=== PATIENT | male | born 1965 | race Caucasian/White ===

== ENCOUNTER → 2024-04-30 | Outpatient (CLI) | payer MEDICARE | LOC: M PLARAD 10:03 | PROVIDERS: ATTEND Family Medicine Addiction Medicine | DX: R26.89 Other abnormalities of gait and mobility (principal) ==

== ENCOUNTER → 2024-05-01 | Outpatient (REF) | payer MEDICARE ==
[2024-05-01 14:38] LABS: ALBUMIN 3.7 G/DL (3.2-5.2); ALKALINE PHOSPHATASE 111 U/L (46-116); ALT/SGPT 48 U/L (7.0-40); AST/SGOT 17 U/L (<34); BILIRUBIN,TOTAL 0.7 MG/DL (0.3-1.2); BLOOD UREA NITROGEN 20 MG/DL (9-23); CALCIUM LEVEL 9.6 MG/DL (8.3-10.6); CARBON DIOXIDE LEVEL 27 MMOL/L (20-31); CHLORIDE LEVEL 107 MMOL/L (98-107); CHOLESTEROL LEVEL 143 MG/DL (<200); CHOLESTEROL RISK RATIO 4.12 (<5); CREATININE FOR GFR 1.03 MG/DL (0.70-1.30); GLOMERULAR FILTRATION RATE > 60.0 (>49); GLUCOSE, FASTING 100 MG/DL (74-106); HDL CHOLESTEROL 34.7 MG/DL (>40); LDL CHOLESTEROL 87.7 MG/DL (<100); NON-HDL-C 108.3 MG/DL; POTASSIUM SERUM 4.6 MMOL/L (3.5-5.1); SODIUM LEVEL 139 MMOL/L (136-145); TRIGLYCERIDES LEVEL 103 MG/DL (<150)
== END ==
LOC: M LAB REF 12:57
PROVIDERS: ATTEND Family Medicine Addiction Medicine
DX: I10 Essential (primary) hypertension (principal)

== ENCOUNTER 2024-07-05 17:11 | Inpatient (IN) | payer MEDICARE ==
[~2024-07-05] VITALS: Ht 182.9 cm; Wt 100.3 kg
[2024-07-05] MEDS: NS 1,000 ML IV SCH (00:42)
[2024-07-05 17:59] LABS: VENOUS BASE EXCESS -12.6 (-2.0-2.0); VENOUS HCO3 10.1 MMOL/L (23.0-27.0); VENOUS PARTIAL PRESSURE CO2 18.1 mmHg (38.0-50.0); VENOUS PARTIAL PRESSURE O2 86.3 mmHg (30.0-50.0); VENOUS PH 7.363 UNITS (7.330-7.430); VENOUS STANDARD HCO3 14.7 MMOL/L; VENOUS TOTAL CO2 10.6 MMOL/L (24.0-28.0)
[2024-07-05 18:03] LABS: BASO % 0.2 % (0.0-1.0); EOS % 0.3 % (0.0-3.0); HEMATOCRIT 36.1 % (42.0-52.0); HEMOGLOBIN 13.2 g/dl (13.5-17.5); LYMPH % 6.3 % (24.0-44.0); MEAN CORPUSCULAR HEMOGLOBIN 31.8 pg (27.0-33.0); MONO # 1.2 10^3/uL (0.0-0.8); MONO % 7.7 % (2.0-8.0); NEUTROPHILS # 12.7 10^3/uL (1.5-8.5); NEUTROPHILS % 84.6 % (36.0-66.0); PLATELET COUNT, AUTOMATED 266 10^3/uL (150-450); RED BLOOD COUNT 4.15 10^6/uL (4.30-6.10)
[2024-07-05 18:06] LABS: MEAN CORPUSCULAR HGB CONC 36.6 g/dl (32.0-36.5)
[2024-07-05] MEDS: NS 1,000 ML IV ONE ×3 (18:25)
[2024-07-05] MEDS: LIDOCAINE 2% 5ML JELLY UROJET TOP ONE (18:50)
[2024-07-05 18:57] LABS: ETHYL ALCOHOL (ETHANOL) < 0.003 % (0.000-0.010)
[2024-07-05 18:58] LABS: SALICYLATE LEVEL < 3.0 MG/DL (<30)
[2024-07-05 18:58] LABS: INR 1.29; PROTHROMBIN TIME 15.7 SECONDS (12.5-14.5)
[2024-07-05 19:06] LABS: PROCALCITONIN 25.41 ng/ml
[2024-07-05] MEDS: VANCOMYCIN HCL 1,000 MG, VIAL MATE ADAPTER 1 EACH in D5W 250 ML IV ONE (19:26)
[2024-07-05 19:35] LABS: ALBUMIN 2.3 G/DL (3.2-5.2); ALKALINE PHOSPHATASE 118 U/L (46-116); ALT/SGPT 181 U/L (7.0-40); AST/SGOT 134 U/L (<34); BILIRUBIN,DIRECT 0.4 MG/DL (<0.4); BILIRUBIN,TOTAL 0.6 MG/DL (0.3-1.2); BLOOD UREA NITROGEN 186 MG/DL (9-23); CALCIUM LEVEL 7.3 MG/DL (8.3-10.6); CARBON DIOXIDE LEVEL < 10.0 MMOL/L (20-31); CHLORIDE LEVEL 98 MMOL/L (98-107); CK-MB VALUE MASS 5.5 NG/ML (<3.6); CREATININE FOR GFR 9.83 MG/DL (0.70-1.30); GLOMERULAR FILTRATION RATE 5.8 (>49); GLUCOSE, FASTING 109 MG/DL (74-106); POTASSIUM SERUM 4.4 MMOL/L (3.5-5.1); SODIUM LEVEL 130 MMOL/L (136-145); TOTAL PROTEIN 5.8 G/DL (5.7-8.2)
[2024-07-05 19:47] LABS: CPK CREATINE PHOSPHOKINASE 2108 U/L (46-171); MB/CK RELATIVE INDEX 0.26 (< OR =4)
[2024-07-05] MEDS: CEFEPIME HCL 1 GM in D5W MINI-BAG PLUS 50 ML IV ONE (20:29)
[2024-07-05] MEDS ORDERED: HOME MED LIST COMPLETE! XX SCH (20:30)
[2024-07-05] MEDS ORDERED: LISI20TA33 PO (20:30)
[2024-07-05] MEDS ORDERED: AMLO1TAB25 PO (20:30)
[2024-07-05 20:54] LABS: CK-MB VALUE MASS 4.6 NG/ML (<3.6)
[2024-07-05 21:07] LABS: MB/CK RELATIVE INDEX 0.3 (< OR =4)
[2024-07-05] MEDS ORDERED: ACETAMINOPHEN 650MG SUPP PR PRN (21:45)
[2024-07-05] MEDS ORDERED: BISACODYL 10MG SUPP PR PRN (21:45)
[2024-07-05] MEDS ORDERED: MORPHINE 2 MG/ML 1ML VIAL IV PRN (21:45)
[2024-07-05] MEDS ORDERED: HYOSCYAMINE SULFATE 0.125 MG SUBL TABLET PO PRN (21:45)
[2024-07-05] MEDS ORDERED: ACETAMINOPHEN TAB 650MG DOSE (2X325MG) PO PRN (21:45)
[2024-07-05] MEDS ORDERED: ONDANSETRON 4MG ORAL DISINTEGRATING TAB PO PRN (21:45)
[2024-07-05] MEDS ORDERED: FLEET ENEMA PR PRN (21:45)
[2024-07-05] MEDS ORDERED: SCOPOLAMINE 1MG TRANSDERMAL PATCH TOP PRN (21:45)
[2024-07-05] MEDS ORDERED: LORazepam 2 MG/ML 1ML VIAL IV PRN (21:45)
[2024-07-05] MEDS ORDERED: ONDANSETRON 4MG 2ML VIAL IV PRN (21:45)
[2024-07-05] MEDS: LORazepam 1 MG TAB PO PRN (22:59)
[2024-07-05] MEDS: MORPHINE 10MG/0.5ML ORAL CONCENTRATE SOLUTION U/D SL PRN (23:00)
[2024-07-05] MEDS: NS 500 ML IV ONE (23:40)
[2024-07-06] VITALS (21 sets, daily range): BP systolic 80–106; BP diastolic 50–61; TEMP 96.9–98.7; O2SAT 94–100
[2024-07-06] MEDS ORDERED: VANCOMYCIN HCL 1,000 MG, VIAL MATE ADAPTER 1 EACH in NS 250 ML IV SCH
[2024-07-06] MEDS ORDERED: ALBUTEROL SULFATE 2.5MG/0.5ML INH NEB SOLN NEB PRN (00:05)
[2024-07-06] MEDS: VANCOMYCIN HCL 1,000 MG, VIAL MATE ADAPTER 1 EACH in D5W 250 ML IV ONE (00:42)
[2024-07-06 00:50] LABS: MAGNESIUM LEVEL 2.7 MG/DL (1.8-2.4); PHOSPHORUS LEVEL 10.1 MG/DL (2.4-5.1)
[2024-07-06] MEDS ORDERED: VANCOMYCIN INTERMITTENT/PULSE DOSING BY CLINICAL PHARMACIST PER DOSING PROTOCOL XX SCH ×2 (01:10→16:40)
[2024-07-06 01:22] LABS: CHLORIDE,RANDOM URINE 55 MMOL/L; SODIUM,RANDOM URINE 70 MMOL/L
[2024-07-06 01:25] LABS: OSMOLALITY URINE 345 MOSM/KG (50-1400)
[2024-07-06 01:27] LABS: TOTAL PROTEIN,RANDOM URINE 106.2 MG/DL (0.0-14.0)
[2024-07-06 01:28] LABS: AMPHETAMINES LEVEL URINE NEGATIVE (NEGATIVE)
[2024-07-06 01:29] LABS: BARBITURATES URINE NEGATIVE (NEGATIVE); BENZODIAZEPINES URINE NEGATIVE (NEGATIVE); COCAINE METABOLITE URINE NEGATIVE (NEGATIVE); METHADONE URINE NEGATIVE (NEGATIVE); OPIATES URINE NEGATIVE (NEGATIVE)
[2024-07-06 01:30] LABS: CANNABINOIDS URINE NEGATIVE (NEGATIVE); PHENCYCLIDINE URINE NEGATIVE (NEGATIVE)
[2024-07-06 01:31] LABS: CREATININE,RANDOM URINE 83.7 MG/DL
[2024-07-06] MEDS: IPRATROPIUM 0.5MG/ALBUTEROL 2.5MG INH SOL UD 3ML (DUONEB) NEB SCH (01:49)
[2024-07-06 03:35] LABS: VENOUS HCO3 12.4 MMOL/L (23.0-27.0); VENOUS O2 SATURATION 84.7 % (60.0-80.0); VENOUS PARTIAL PRESSURE CO2 27.8 mmHg (38.0-50.0); VENOUS PARTIAL PRESSURE O2 58.8 mmHg (30.0-50.0); VENOUS PH 7.267 UNITS (7.330-7.430); VENOUS STANDARD HCO3 14.1 MMOL/L; VENOUS TOTAL CO2 13.2 MMOL/L (24.0-28.0)
[2024-07-06 03:54] LABS: HEMATOCRIT 32.1 % (42.0-52.0); HEMOGLOBIN 11.4 g/dl (13.5-17.5); MEAN CORPUSCULAR HEMOGLOBIN 31.5 pg (27.0-33.0); MEAN CORPUSCULAR HGB CONC 35.5 g/dl (32.0-36.5); MEAN CORPUSCULAR VOLUME 88.7 fl (80.0-96.0); PLATELET COUNT, AUTOMATED 223 10^3/uL (150-450); RED BLOOD COUNT 3.62 10^6/uL (4.30-6.10); WHITE BLOOD COUNT 11.7 10^3/uL (4.0-10.0)
[2024-07-06 04:12] LABS: PROCALCITONIN 14.55 ng/ml
[2024-07-06] MEDS: NS 500 ML IV ONE (04:20)
[2024-07-06 04:33] LABS: ALBUMIN 1.8 G/DL (3.2-5.2); BILIRUBIN,TOTAL 0.5 MG/DL (0.3-1.2); CALCIUM LEVEL 6.4 MG/DL (8.3-10.6); CREATININE FOR GFR 7.46 MG/DL (0.70-1.30); MAGNESIUM LEVEL 2.3 MG/DL (1.8-2.4); POTASSIUM SERUM 4.1 MMOL/L (3.5-5.1); TOTAL PROTEIN 4.9 G/DL (5.7-8.2)
[2024-07-06 04:34] LABS: ABG BASE EXCESS -12.8 (-2.0-2.0); ABG HCO3 10.6 MMOL/L (22.0-26.0); ABG O2 SATURATION 98.4 % (95.0-99.0); ABG PARTIAL PRESSURE O2 171.7 mmHg (75.0-100.0); ABG STANDARD HCO3 14.5 MMOL/L. (22.0-26.0); ABG TOTAL CO2 11.2 MMOL/L (23.0-31.0); ABG pH (ARTERIAL) 7.355 UNITS (7.350-7.450)
[2024-07-06 04:41] LABS: ABG PARTIAL PRESSURE CO2 19.5 mmHg (35.0-45.0)
[2024-07-06] MEDS: SODIUM BICARBONATE 150 MEQ in D5W 1,000 ML IV SCH (04:57)
[2024-07-06] MEDS: HYDROCORTISONE 100MG/2ML VIAL IV ONE (05:07)
[2024-07-06 06:13] LABS: VANCOMYCIN RANDOM 26.9 UG/ML
[2024-07-06 06:14] LABS: PHOSPHORUS LEVEL 7.5 MG/DL (2.4-5.1)
[2024-07-06 06:28] LABS: VENOUS BASE EXCESS -11.5 (-2.0-2.0); VENOUS O2 SATURATION 98.6 % (60.0-80.0); VENOUS PARTIAL PRESSURE CO2 21.5 mmHg (38.0-50.0); VENOUS PARTIAL PRESSURE O2 150.5 mmHg (30.0-50.0); VENOUS PH 7.363 UNITS (7.330-7.430); VENOUS STANDARD HCO3 15.5 MMOL/L; VENOUS TOTAL CO2 12.6 MMOL/L (24.0-28.0)
[2024-07-06] MEDS: SUCRALFATE SUSP 1GM/10ML UD PO SCH (08:49)
[2024-07-06] MEDS: CEFEPIME HCL 2 GM in D5W 50 ML IV SCH (08:49)
[2024-07-06] MEDS: PANTOPRAZOLE 40MG VIAL IV SCH (08:49)
[2024-07-06] MEDS: NYSTATIN 100,000 UNITS/GM TOPICAL PWD 15GM TOP SCH (08:50)
[2024-07-06] MEDS ORDERED: E-Z-PAQUE 96% w/w SUSP 176GM BTL As Ordered ONE (10:26)
[2024-07-06] MEDS ORDERED: MORPHINE 2 MG/ML 1ML VIAL IV PRN (12:05)
[2024-07-06 12:17] LABS: HEMOGLOBIN 11.3 g/dl (13.5-17.5)
[2024-07-06] MEDS: NS 1,000 ML IV ONE ×2 (16:04→20:58)
[2024-07-06] MEDS ORDERED: VANCOMYCIN HCL 1,000 MG, VIAL MATE ADAPTER 1 EACH in D5W 250 ML IV SCH (16:15)
[2024-07-06 18:31] LABS: HEMATOCRIT 29.4 % (42.0-52.0); HEMOGLOBIN 10.7 g/dl (13.5-17.5); MEAN CORPUSCULAR HEMOGLOBIN 31.7 pg (27.0-33.0); MEAN CORPUSCULAR HGB CONC 36.4 g/dl (32.0-36.5); PLATELET COUNT, AUTOMATED 237 10^3/uL (150-450); RED BLOOD COUNT 3.38 10^6/uL (4.30-6.10); WHITE BLOOD COUNT 10.5 10^3/uL (4.0-10.0)
[2024-07-06 18:33] LABS: HEMATOCRIT 29.1 % (42.0-52.0); HEMOGLOBIN 10.7 g/dl (13.5-17.5)
[2024-07-06 18:54] LABS: MAGNESIUM LEVEL 2.2 MG/DL (1.8-2.4); PHOSPHORUS LEVEL 5.9 MG/DL (2.4-5.1)
[2024-07-06 19:10] LABS: HEPATITIS B SURFACE ANTIGEN NEGATIVE (NEGATIVE)
[2024-07-06 19:12] LABS: ATYPICAL LYMPH 4 % (0-5); EOSINOPHILS 2 % (0-3); LYMPHOCYTES 8 % (16-44); MONOCYTES 6 % (0-5); NEUTROPHILS 78 % (28-66); PLATELET ESTIMATE NORMAL (NORMAL)
[2024-07-06 19:13] LABS: ANISOCYTOSIS 1+
[2024-07-06 19:19] LABS: ALBUMIN 1.9 G/DL (3.2-5.2); BILIRUBIN,TOTAL 0.4 MG/DL (0.3-1.2); CALCIUM LEVEL 6.8 MG/DL (8.3-10.6); CREATININE FOR GFR 4.46 MG/DL (0.70-1.30); GLOMERULAR FILTRATION RATE 14.5 (>49); POTASSIUM SERUM 3.5 MMOL/L (3.5-5.1); TOTAL PROTEIN 5.4 G/DL (5.7-8.2)
[2024-07-06 19:31] LABS: HEPATITIS B CORE ANTIBODY IGM NEGATIVE (NEGATIVE); HEPATITIS C VIRUS ABY INDEX < 0.02 INDEX (<0.8)
[2024-07-07] VITALS (27 sets, daily range): BP systolic 84–114; BP diastolic 50–65; TEMP 97.2–98.7; O2SAT 77–99
[2024-07-07 00:43] LABS: HEMATOCRIT 26.9 % (42.0-52.0); HEMOGLOBIN 9.9 g/dl (13.5-17.5)
[2024-07-07] MEDS: SODIUM CHLORIDE 0.9% 1000ML IV ONE (06:00)
[2024-07-07 06:09] LABS: ABG BASE EXCESS 2.1 (-2.0-2.0); ABG O2 SATURATION 98.5 % (95.0-99.0); ABG PARTIAL PRESSURE CO2 28.6 mmHg (35.0-45.0); ABG PARTIAL PRESSURE O2 137.7 mmHg (75.0-100.0); ABG STANDARD HCO3 26.4 MMOL/L. (22.0-26.0); ABG TOTAL CO2 24.9 MMOL/L (23.0-31.0); ABG pH (ARTERIAL) 7.542 UNITS (7.350-7.450)
[2024-07-07 06:52] LABS: HEMOGLOBIN 11.5 g/dl (13.5-17.5); MEAN CORPUSCULAR HEMOGLOBIN 32.1 pg (27.0-33.0); MEAN CORPUSCULAR VOLUME 86.6 fl (80.0-96.0); PLATELET COUNT, AUTOMATED 206 10^3/uL (150-450); RED BLOOD COUNT 3.58 10^6/uL (4.30-6.10)
[2024-07-07 06:53] LABS: MEAN CORPUSCULAR HGB CONC 37.1 g/dl (32.0-36.5)
[2024-07-07 06:56] LABS: ALBUMIN 1.8 G/DL (3.2-5.2); BILIRUBIN,TOTAL 0.5 MG/DL (0.3-1.2); CALCIUM LEVEL 6.7 MG/DL (8.3-10.6); CREATININE FOR GFR 3.06 MG/DL (0.70-1.30); GLOMERULAR FILTRATION RATE 22.3 (>49); POTASSIUM SERUM 3.1 MMOL/L (3.5-5.1); TOTAL PROTEIN 5.3 G/DL (5.7-8.2)
[2024-07-07] MEDS: LR 1,000 ML IV ONE (07:58)
[2024-07-07 08:07] LABS: ATYPICAL LYMPH 2 % (0-5); BASOPHILS 1 % (0-1); EOSINOPHILS 1 % (0-3); LYMPHOCYTES 18 % (16-44); MONOCYTES 4 % (0-5); NEUTROPHILS 74 % (28-66)
[2024-07-07 08:08] LABS: ANISOCYTOSIS 1+; PLATELET ESTIMATE NORMAL (NORMAL)
[2024-07-07] MEDS: POTASSIUM CHLORIDE 10MEQ SR TABLET PO ONE (08:48)
[2024-07-07] MEDS: VANCOMYCIN HCL 1,000 MG, VIAL MATE ADAPTER 1 EACH in D5W 250 ML IV ONE (08:48)
[2024-07-07] MEDS: KCL 20MEQ IN 0.45NS 1000ML 1,000 ML IV SCH (09:35)
[2024-07-07] MEDS: DOCUSATE SODIUM 100MG CAPSULE PO SCH (13:54)
[2024-07-08] VITALS (24 sets, daily range): BP systolic 99–134; BP diastolic 55–82; TEMP 97–98.6; O2SAT 88–98
[2024-07-08 07:13] LABS: BASO # 0.1 10^3/uL (0.0-0.2); BASO % 0.7 % (0.0-1.0); EOS # 0.2 10^3/uL (0.0-0.5); EOS % 3.5 % (0.0-3.0); HEMATOCRIT 28.4 % (42.0-52.0); HEMOGLOBIN 9.6 g/dl (13.5-17.5); LYMPH # 1.2 10^3/uL (1.5-5.0); LYMPH % 16.8 % (24.0-44.0); MEAN CORPUSCULAR HGB CONC 33.8 g/dl (32.0-36.5); MEAN CORPUSCULAR VOLUME 94.7 fl (80.0-96.0); MONO # 0.6 10^3/uL (0.0-0.8); MONO % 8.6 % (2.0-8.0); NEUTROPHILS # 4.4 10^3/uL (1.5-8.5); NEUTROPHILS % 65.1 % (36.0-66.0); PLATELET COUNT, AUTOMATED 250 10^3/uL (150-450); WHITE BLOOD COUNT 6.8 10^3/uL (4.0-10.0)
[2024-07-08 07:22] LABS: PERCENT SATURATION 46.4 % (19.7-50.0)
[2024-07-08 07:31] LABS: ALBUMIN 1.9 G/DL (3.2-5.2); BILIRUBIN,TOTAL 0.4 MG/DL (0.3-1.2); CALCIUM LEVEL 7.2 MG/DL (8.3-10.6); CREATININE FOR GFR 1.53 MG/DL (0.70-1.30); FERRITIN 479.5 NG/ML (10.5-307.3); GLOMERULAR FILTRATION RATE 49.7 (>49); MAGNESIUM LEVEL 1.6 MG/DL (1.8-2.4); POTASSIUM SERUM 4.3 MMOL/L (3.5-5.1); TOTAL PROTEIN 5.7 G/DL (5.7-8.2)
[2024-07-08] MEDS: MAG SULF 1GM/100ML (MAG RUN) 1 GM in IV 1 EA IV SCH (08:26)
[2024-07-08] MEDS: CEFEPIME HCL 1 GM in D5W MINI-BAG PLUS 50 ML IV SCH (09:11)
[2024-07-08] MEDS: NS 0.45% 1,000 ML IV SCH (13:50)
[2024-07-08 21:03] LABS: HEMATOCRIT 29.6 % (42.0-52.0); HEMOGLOBIN 9.9 g/dl (13.5-17.5)
[2024-07-08] MEDS: CEFEPIME HCL 2 GM in D5W MINI-BAG PLUS 50 ML IV SCH (22:03)
[2024-07-09] VITALS (13 sets, daily range): BP systolic 109–128; BP diastolic 62–75; TEMP 97–98.4; O2SAT 95–100
[2024-07-09 07:15] LABS: BASO % 0.4 % (0.0-1.0); EOS # 0.4 10^3/uL (0.0-0.5); EOS % 5.2 % (0.0-3.0); HEMATOCRIT 29.4 % (42.0-52.0); HEMOGLOBIN 9.8 g/dl (13.5-17.5); LYMPH # 1.1 10^3/uL (1.5-5.0); LYMPH % 15.7 % (24.0-44.0); MEAN CORPUSCULAR HGB CONC 33.3 g/dl (32.0-36.5); MEAN CORPUSCULAR VOLUME 96.1 fl (80.0-96.0); MONO # 0.4 10^3/uL (0.0-0.8); MONO % 5.8 % (2.0-8.0); NEUTROPHILS % 68.6 % (36.0-66.0); PLATELET COUNT, AUTOMATED 276 10^3/uL (150-450); RED BLOOD COUNT 3.06 10^6/uL (4.30-6.10); WHITE BLOOD COUNT 7.3 10^3/uL (4.0-10.0)
[2024-07-09 07:44] LABS: ALBUMIN 2.1 G/DL (3.2-5.2); ALKALINE PHOSPHATASE 79 U/L (46-116); ALT/SGPT 100 U/L (7.0-40); AST/SGOT 59 U/L (<34); BILIRUBIN,TOTAL 0.5 MG/DL (0.3-1.2); BLOOD UREA NITROGEN 33 MG/DL (9-23); CALCIUM LEVEL 7.6 MG/DL (8.3-10.6); CARBON DIOXIDE LEVEL 25 MMOL/L (20-31); CHLORIDE LEVEL 113 MMOL/L (98-107); GLOMERULAR FILTRATION RATE > 60.0 (>49); GLUCOSE, FASTING 102 MG/DL (74-106); MAGNESIUM LEVEL 1.4 MG/DL (1.8-2.4); POTASSIUM SERUM 4.6 MMOL/L (3.5-5.1); SODIUM LEVEL 141 MMOL/L (136-145); TOTAL PROTEIN 6.3 G/DL (5.7-8.2)
[2024-07-09] MEDS: MAG SULF 1GM/100ML (MAG RUN) 1 GM in IV 1 EA IV SCH (09:27)
[2024-07-09] MEDS ORDERED: fentaNYL 100 MCG/2 ML INJECTION As Ordered ONE (15:38)
[2024-07-09] MEDS ORDERED: PROHANCE 279.3MG/ML 5ML VIAL As Ordered ONE (21:36)
[2024-07-09] MEDS ORDERED: PROHANCE 279.3MG/ML 15ML VIAL As Ordered ONE (21:36)
[2024-07-10] VITALS (18 sets, daily range): BP systolic 100–143; BP diastolic 58–83; TEMP 97.5–98.2; O2SAT 52–98
[2024-07-10 06:26] LABS: BASO # 0.1 10^3/uL (0.0-0.2); BASO % 0.6 % (0.0-1.0); EOS # 0.3 10^3/uL (0.0-0.5); EOS % 3.7 % (0.0-3.0); HEMATOCRIT 29.9 % (42.0-52.0); HEMOGLOBIN 10.1 g/dl (13.5-17.5); MEAN CORPUSCULAR HEMOGLOBIN 32.3 pg (27.0-33.0); MEAN CORPUSCULAR HGB CONC 33.8 g/dl (32.0-36.5); MEAN CORPUSCULAR VOLUME 95.5 fl (80.0-96.0); MONO # 0.4 10^3/uL (0.0-0.8); MONO % 4.5 % (2.0-8.0); NEUTROPHILS # 6.9 10^3/uL (1.5-8.5); PLATELET COUNT, AUTOMATED 273 10^3/uL (150-450); RED BLOOD COUNT 3.13 10^6/uL (4.30-6.10); WHITE BLOOD COUNT 8.8 10^3/uL (4.0-10.0)
[2024-07-10 06:54] LABS: ALBUMIN 2.1 G/DL (3.2-5.2); ALKALINE PHOSPHATASE 79 U/L (46-116); ALT/SGPT 85 U/L (7.0-40); AST/SGOT 46 U/L (<34); BILIRUBIN,TOTAL 0.6 MG/DL (0.3-1.2); BLOOD UREA NITROGEN 24 MG/DL (9-23); CALCIUM LEVEL 7.8 MG/DL (8.3-10.6); CARBON DIOXIDE LEVEL 23 MMOL/L (20-31); CHLORIDE LEVEL 113 MMOL/L (98-107); CREATININE FOR GFR 0.91 MG/DL (0.70-1.30); GLOMERULAR FILTRATION RATE > 60.0 (>49); GLUCOSE, FASTING 105 MG/DL (74-106); MAGNESIUM LEVEL 1.6 MG/DL (1.8-2.4); POTASSIUM SERUM 4.9 MMOL/L (3.5-5.1); SODIUM LEVEL 141 MMOL/L (136-145); TOTAL PROTEIN 6.4 G/DL (5.7-8.2)
[2024-07-10] MEDS: HEPARIN SOD (PORCINE) 5000UNITS/ML 1ML VIAL/SYRINGE SQ SCH (15:31)
[2024-07-10] MEDS: MAGNESIUM OXIDE 400MG TAB (MAG-OX) PO SCH (15:31)
[2024-07-10] MEDS: SUCRALFATE SUSP 1GM/10ML UD PO SCH (17:09)
[2024-07-11] VITALS: BP 114/66; TEMP 97.7; O2SAT 88
[2024-07-11 04:52] VITALS: BP 106/75; TEMP 97.5; O2SAT 95
[2024-07-11 07:15] LABS: BASO % 0.4 % (0.0-1.0); EOS # 0.2 10^3/uL (0.0-0.5); EOS % 2.5 % (0.0-3.0); HEMATOCRIT 31.1 % (42.0-52.0); HEMOGLOBIN 10.3 g/dl (13.5-17.5); LYMPH # 0.9 10^3/uL (1.5-5.0); LYMPH % 10.2 % (24.0-44.0); MEAN CORPUSCULAR HEMOGLOBIN 31.6 pg (27.0-33.0); MEAN CORPUSCULAR HGB CONC 33.1 g/dl (32.0-36.5); MEAN CORPUSCULAR VOLUME 95.4 fl (80.0-96.0); MONO # 0.4 10^3/uL (0.0-0.8); MONO % 4.3 % (2.0-8.0); NEUTROPHILS # 6.7 10^3/uL (1.5-8.5); NEUTROPHILS % 80.8 % (36.0-66.0); PLATELET COUNT, AUTOMATED 286 10^3/uL (150-450); RED BLOOD COUNT 3.26 10^6/uL (4.30-6.10); WHITE BLOOD COUNT 8.3 10^3/uL (4.0-10.0)
[2024-07-11 07:43] LABS: ALBUMIN 2.2 G/DL (3.2-5.2); ALKALINE PHOSPHATASE 84 U/L (46-116); ALT/SGPT 75 U/L (7.0-40); AST/SGOT 35 U/L (<34); BILIRUBIN,TOTAL 0.6 MG/DL (0.3-1.2); BLOOD UREA NITROGEN 21 MG/DL (9-23); CALCIUM LEVEL 8.3 MG/DL (8.3-10.6); CARBON DIOXIDE LEVEL 21 MMOL/L (20-31); CHLORIDE LEVEL 114 MMOL/L (98-107); CREATININE FOR GFR 0.87 MG/DL (0.70-1.30); GLOMERULAR FILTRATION RATE > 60.0 (>49); GLUCOSE, FASTING 93 MG/DL (74-106); MAGNESIUM LEVEL 1.4 MG/DL (1.8-2.4); POTASSIUM SERUM 5.2 MMOL/L (3.5-5.1); SODIUM LEVEL 141 MMOL/L (136-145); TOTAL PROTEIN 6.7 G/DL (5.7-8.2)
[2024-07-11 08:00] VITALS: BP 114/79; TEMP 97.7; O2SAT 97
[2024-07-11] MEDS: MAGNESIUM OXIDE 400MG TAB (MAG-OX) PO SCH (11:25)
[2024-07-11 12:00] VITALS: BP 114/74; TEMP 97.7; O2SAT 97
[2024-07-11] MEDS: MAG SULF 1GM/100ML (MAG RUN) 1 GM in IV 1 EA IV SCH (12:32)
[2024-07-11] MEDS: SOD POLYSTYRENE SULFONATE SUSP 15GM 60ML UD PO ONE (14:01)
[2024-07-11 16:00] VITALS: BP 107/57; TEMP 97.9; O2SAT 95
[2024-07-11 19:24] VITALS: BP 112/79; TEMP 97.9; O2SAT 98
[2024-07-12] VITALS: BP 113/79; TEMP 97.5; O2SAT 92
[2024-07-12 04:00] VITALS: BP 104/56; TEMP 98.1; O2SAT 90
[2024-07-12 07:01] LABS: BASO # 0.1 10^3/uL (0.0-0.2); BASO % 0.5 % (0.0-1.0); EOS # 0.2 10^3/uL (0.0-0.5); EOS % 1.9 % (0.0-3.0); LYMPH # 0.8 10^3/uL (1.5-5.0); LYMPH % 8.7 % (24.0-44.0); MEAN CORPUSCULAR HEMOGLOBIN 31.4 pg (27.0-33.0); MEAN CORPUSCULAR HGB CONC 33.3 g/dl (32.0-36.5); MEAN CORPUSCULAR VOLUME 94.3 fl (80.0-96.0); MONO # 0.4 10^3/uL (0.0-0.8); MONO % 4.2 % (2.0-8.0); NEUTROPHILS # 7.7 10^3/uL (1.5-8.5); NEUTROPHILS % 82.9 % (36.0-66.0); PLATELET COUNT, AUTOMATED 304 10^3/uL (150-450); RED BLOOD COUNT 3.18 10^6/uL (4.30-6.10); WHITE BLOOD COUNT 9.2 10^3/uL (4.0-10.0)
[2024-07-12 07:32] LABS: ALBUMIN 2.3 G/DL (3.2-5.2); ALKALINE PHOSPHATASE 90 U/L (46-116); ALT/SGPT 71 U/L (7.0-40); AST/SGOT 37 U/L (<34); BILIRUBIN,TOTAL 0.5 MG/DL (0.3-1.2); BLOOD UREA NITROGEN 23 MG/DL (9-23); CALCIUM LEVEL 8.1 MG/DL (8.3-10.6); CARBON DIOXIDE LEVEL 22 MMOL/L (20-31); CHLORIDE LEVEL 109 MMOL/L (98-107); CREATININE FOR GFR 0.86 MG/DL (0.70-1.30); GLOMERULAR FILTRATION RATE > 60.0 (>49); GLUCOSE, FASTING 104 MG/DL (74-106); MAGNESIUM LEVEL 1.7 MG/DL (1.8-2.4); POTASSIUM SERUM 4.9 MMOL/L (3.5-5.1); SODIUM LEVEL 136 MMOL/L (136-145); TOTAL PROTEIN 6.7 G/DL (5.7-8.2)
[2024-07-12 08:00] VITALS: BP 118/68; TEMP 98.1; O2SAT 95
[2024-07-12] MEDS: MAG SULF 1GM/100ML (MAG RUN) 1 GM in IV 1 EA IV ONE (09:00)
[2024-07-12 12:00] VITALS: BP 115/68; TEMP 98.1; O2SAT 96
[2024-07-12 16:00] VITALS: BP 112/68; TEMP 98.2; O2SAT 95
[2024-07-13] VITALS (7 sets, daily range): BP systolic 102–125; BP diastolic 66–79; TEMP 97.9–98.1; O2SAT 56–100
[2024-07-13 10:01] LABS: BASO # 0.1 10^3/uL (0.0-0.2); BASO % 0.6 % (0.0-1.0); EOS # 0.1 10^3/uL (0.0-0.5); EOS % 1.6 % (0.0-3.0); HEMATOCRIT 33.8 % (42.0-52.0); HEMOGLOBIN 11.3 g/dl (13.5-17.5); LYMPH # 0.7 10^3/uL (1.5-5.0); MEAN CORPUSCULAR HEMOGLOBIN 32.2 pg (27.0-33.0); MEAN CORPUSCULAR HGB CONC 33.4 g/dl (32.0-36.5); MEAN CORPUSCULAR VOLUME 96.3 fl (80.0-96.0); MONO # 0.4 10^3/uL (0.0-0.8); MONO % 5.3 % (2.0-8.0); NEUTROPHILS # 6.6 10^3/uL (1.5-8.5); NEUTROPHILS % 82.2 % (36.0-66.0); PLATELET COUNT, AUTOMATED 351 10^3/uL (150-450); RED BLOOD COUNT 3.51 10^6/uL (4.30-6.10)
[2024-07-13 10:19] LABS: ALBUMIN 2.6 G/DL (3.2-5.2); ALKALINE PHOSPHATASE 109 U/L (46-116); ALT/SGPT 102 U/L (7.0-40); AST/SGOT 65 U/L (<34); BILIRUBIN,TOTAL 0.5 MG/DL (0.3-1.2); BLOOD UREA NITROGEN 23 MG/DL (9-23); CALCIUM LEVEL 8.9 MG/DL (8.3-10.6); CARBON DIOXIDE LEVEL 24 MMOL/L (20-31); CHLORIDE LEVEL 111 MMOL/L (98-107); GLOMERULAR FILTRATION RATE > 60.0 (>49); GLUCOSE, FASTING 100 MG/DL (74-106); MAGNESIUM LEVEL 1.4 MG/DL (1.8-2.4); POTASSIUM SERUM 5.2 MMOL/L (3.5-5.1); SODIUM LEVEL 139 MMOL/L (136-145); TOTAL PROTEIN 7.2 G/DL (5.7-8.2)
[2024-07-13] MEDS: MAG SULF 1GM/100ML (MAG RUN) 1 GM in IV 1 EA IV SCH (11:17)
[2024-07-13] MEDS: SOD POLYSTYRENE SULFONATE SUSP 15GM 60ML UD PO ONE (13:14)
[2024-07-14 01:28] VITALS: O2SAT 76
[2024-07-14 01:30] VITALS: O2SAT 92
[2024-07-14 04:13] VITALS: BP 103/65; TEMP 97.5; O2SAT 94
[2024-07-14 06:41] LABS: BASO # 0.1 10^3/uL (0.0-0.2); BASO % 0.9 % (0.0-1.0); EOS # 0.2 10^3/uL (0.0-0.5); HEMATOCRIT 30.5 % (42.0-52.0); HEMOGLOBIN 10.3 g/dl (13.5-17.5); LYMPH % 12.2 % (24.0-44.0); MEAN CORPUSCULAR HEMOGLOBIN 31.5 pg (27.0-33.0); MEAN CORPUSCULAR HGB CONC 33.8 g/dl (32.0-36.5); MEAN CORPUSCULAR VOLUME 93.3 fl (80.0-96.0); MONO # 0.5 10^3/uL (0.0-0.8); MONO % 6.8 % (2.0-8.0); NEUTROPHILS % 76.1 % (36.0-66.0); PLATELET COUNT, AUTOMATED 315 10^3/uL (150-450); RED BLOOD COUNT 3.27 10^6/uL (4.30-6.10); WHITE BLOOD COUNT 7.9 10^3/uL (4.0-10.0)
[2024-07-14 07:10] LABS: ALBUMIN 2.6 G/DL (3.2-5.2); ALKALINE PHOSPHATASE 116 U/L (46-116); ALT/SGPT 118 U/L (7.0-40); AST/SGOT 67 U/L (<34); BILIRUBIN,TOTAL 0.5 MG/DL (0.3-1.2); BLOOD UREA NITROGEN 25 MG/DL (9-23); CALCIUM LEVEL 8.7 MG/DL (8.3-10.6); CARBON DIOXIDE LEVEL 25 MMOL/L (20-31); CHLORIDE LEVEL 107 MMOL/L (98-107); GLOMERULAR FILTRATION RATE > 60.0 (>49); GLUCOSE, FASTING 106 MG/DL (74-106); MAGNESIUM LEVEL 1.7 MG/DL (1.8-2.4); POTASSIUM SERUM 4.8 MMOL/L (3.5-5.1); SODIUM LEVEL 136 MMOL/L (136-145); TOTAL PROTEIN 6.6 G/DL (5.7-8.2)
[2024-07-14] MEDS: MAG SULF 1GM/100ML (MAG RUN) 1 GM in IV 1 EA IV ONE (10:15)
[2024-07-14] MEDS: RIVAROXABAN 10MG TAB (XARELTO) PO SCH (18:23)
[2024-07-14 20:05] VITALS: BP 134/81; TEMP 97.9; O2SAT 96
[2024-07-15 04:17] VITALS: BP 108/72; TEMP 98.1; O2SAT 93
[2024-07-15 06:09] LABS: BASO # 0.1 10^3/uL (0.0-0.2); BASO % 0.9 % (0.0-1.0); EOS # 0.1 10^3/uL (0.0-0.5); EOS % 1.3 % (0.0-3.0); HEMATOCRIT 29.6 % (42.0-52.0); LYMPH # 0.9 10^3/uL (1.5-5.0); LYMPH % 13.2 % (24.0-44.0); MEAN CORPUSCULAR HEMOGLOBIN 32.1 pg (27.0-33.0); MEAN CORPUSCULAR HGB CONC 33.8 g/dl (32.0-36.5); MEAN CORPUSCULAR VOLUME 94.9 fl (80.0-96.0); MONO # 0.5 10^3/uL (0.0-0.8); MONO % 7.2 % (2.0-8.0); NEUTROPHILS # 5.1 10^3/uL (1.5-8.5); NEUTROPHILS % 75.3 % (36.0-66.0); PLATELET COUNT, AUTOMATED 314 10^3/uL (150-450); RED BLOOD COUNT 3.12 10^6/uL (4.30-6.10); WHITE BLOOD COUNT 6.8 10^3/uL (4.0-10.0)
[2024-07-15 06:39] LABS: ALBUMIN 2.5 G/DL (3.2-5.2); ALKALINE PHOSPHATASE 121 U/L (46-116); ALT/SGPT 102 U/L (7.0-40); AST/SGOT 49 U/L (<34); BILIRUBIN,TOTAL 0.4 MG/DL (0.3-1.2); BLOOD UREA NITROGEN 22 MG/DL (9-23); CALCIUM LEVEL 8.5 MG/DL (8.3-10.6); CARBON DIOXIDE LEVEL 27 MMOL/L (20-31); CHLORIDE LEVEL 106 MMOL/L (98-107); CREATININE FOR GFR 0.96 MG/DL (0.70-1.30); GLOMERULAR FILTRATION RATE > 60.0 (>49); GLUCOSE, FASTING 104 MG/DL (74-106); MAGNESIUM LEVEL 1.7 MG/DL (1.8-2.4); POTASSIUM SERUM 4.8 MMOL/L (3.5-5.1); SODIUM LEVEL 136 MMOL/L (136-145); TOTAL PROTEIN 6.6 G/DL (5.7-8.2)
[2024-07-15] MEDS ORDERED: SUCR1TA PO (09:24)
[2024-07-15] MEDS ORDERED: PROT1TAB2 PO (09:24)
[2024-07-15] MEDS ORDERED: MAGN500C2 PO (09:27)
[2024-07-15 12:00] VITALS: BP 118/74; TEMP 98.4; O2SAT 94
[2024-07-15] MEDS: MAGNESIUM GLUCONATE 500 MG TAB PO SCH (12:34)
== END 2024-07-15 13:41 | DRG 683 ==
LOC: M ED 17:11 → EDBD 17:11 → M ED INP 21:45 → M PCU 07-06 02:18 → M MSPAV 07-09 20:39
PROVIDERS: ADMIT Family Medicine; ATTEND Internal Medicine
DX: N17.9 Acute kidney failure, unspecified (principal); K92.2 Gastrointestinal hemorrhage, unspecified; E87.20 Acidosis, unspecified; K92.0 Hematemesis; N13.8 Other obstructive and reflux uropathy; N13.4 Hydroureter; E87.0 Hyperosmolality and hypernatremia; C64.1 Malignant neoplasm of right kidney, except renal pelvis; Z66 Do not resuscitate; I10 Essential (primary) hypertension; E78.5 Hyperlipidemia, unspecified; R74.01 Elevation of levels of liver transaminase levels; E83.51 Hypocalcemia; N21.0 Calculus in bladder; N32.0 Bladder-neck obstruction; I95.9 Hypotension, unspecified; E86.0 Dehydration; N40.1 Benign prostatic hyperplasia with lower urinary tract symptoms; E87.6 Hypokalemia; E83.42 Hypomagnesemia; E87.5 Hyperkalemia; R53.81 Other malaise; N39.490 Overflow incontinence; L89.620 Pressure ulcer of left heel, unstageable; L60.0 Ingrowing nail; E86.1 Hypovolemia; N50.3 Cyst of epididymis; N28.1 Cyst of kidney, acquired; K22.89 Other specified disease of esophagus; Z79.899 Other long term (current) drug therapy

== ENCOUNTER → 2024-09-11 | Outpatient (REF) | payer MEDICARE ==
[~2024-09-11] MED LIST: AMLO1TAB25 PO; LISI20TA33 PO; MAGN500C2 PO; PROT1TAB2 PO; SUCR1TA PO
[2024-09-11 17:34] LABS: BASO # 0.1 10^3/uL (0.0-0.2); BASO % 0.6 % (0.0-1.0); EOS # 0.2 10^3/uL (0.0-0.5); EOS % 3.1 % (0.0-3.0); HEMATOCRIT 44.2 % (42.0-52.0); HEMOGLOBIN 14.3 g/dl (13.5-17.5); LYMPH # 1.2 10^3/uL (1.5-5.0); MEAN CORPUSCULAR HEMOGLOBIN 30.4 pg (27.0-33.0); MEAN CORPUSCULAR HGB CONC 32.4 g/dl (32.0-36.5); MEAN CORPUSCULAR VOLUME 93.8 fl (80.0-96.0); MONO # 0.7 10^3/uL (0.0-0.8); MONO % 8.9 % (2.0-8.0); NEUTROPHILS # 5.5 10^3/uL (1.5-8.5); NEUTROPHILS % 71.4 % (36.0-66.0); PLATELET COUNT, AUTOMATED 339 10^3/uL (150-450); PSA SCREENING 1.59 NG/ML (< 4.00); RED BLOOD COUNT 4.71 10^6/uL (4.30-6.10); WHITE BLOOD COUNT 7.7 10^3/uL (4.0-10.0)
[2024-09-11 17:37] LABS: ALBUMIN 3.5 G/DL (3.2-5.2); ALKALINE PHOSPHATASE 121 U/L (46-116); ALT/SGPT 33 U/L (7.0-40); AST/SGOT 17 U/L (<34); BILIRUBIN,TOTAL 0.2 MG/DL (0.3-1.2); BLOOD UREA NITROGEN 24 MG/DL (9-23); CALCIUM LEVEL 10.1 MG/DL (8.3-10.6); CARBON DIOXIDE LEVEL 26 MMOL/L (20-31); CHLORIDE LEVEL 110 MMOL/L (98-107); CREATININE FOR GFR 0.85 MG/DL (0.70-1.30); GLOMERULAR FILTRATION RATE > 60.0 (>49); GLUCOSE, FASTING 70 MG/DL (74-106); POTASSIUM SERUM 4.4 MMOL/L (3.5-5.1); SODIUM LEVEL 142 MMOL/L (136-145); TOTAL PROTEIN 7.2 G/DL (5.7-8.2)
== END ==
LOC: M LAB REF 16:19
PROVIDERS: ATTEND Family Medicine Addiction Medicine
DX: E83.42 Hypomagnesemia (principal); D64.9 Anemia, unspecified; N18.9 Chronic kidney disease, unspecified; N40.1 Benign prostatic hyperplasia with lower urinary tract symptoms; Z12.5 Encounter for screening for malignant neoplasm of prostate
CPT/HCPCS: 80053; 83735; 85025; G0103

== ENCOUNTER → 2024-09-24 | Outpatient (CLI) | payer MEDICARE ==
[2024-09-24 11:41] LABS: HEMATOCRIT 43.7 % (42.0-52.0); HEMOGLOBIN 14.9 g/dl (13.5-17.5); MEAN CORPUSCULAR HEMOGLOBIN 30.7 pg (27.0-33.0); MEAN CORPUSCULAR HGB CONC 34.1 g/dl (32.0-36.5); MEAN CORPUSCULAR VOLUME 89.9 fl (80.0-96.0); PLATELET COUNT, AUTOMATED 297 10^3/uL (150-450); RED BLOOD COUNT 4.86 10^6/uL (4.30-6.10); WHITE BLOOD COUNT 8.1 10^3/uL (4.0-10.0)
[2024-09-24 11:53] LABS: INR 1.05; PARTIAL THROMBOPLASTIN TIME 26.7 SECONDS (24.8-34.2); PROTHROMBIN TIME 13.4 SECONDS (12.5-14.5)
[2024-09-24 12:46] LABS: ALBUMIN 3.6 G/DL (3.2-5.2); ALKALINE PHOSPHATASE 117 U/L (46-116); ALT/SGPT 24 U/L (7.0-40); AST/SGOT 14 U/L (<34); BILIRUBIN,TOTAL 0.3 MG/DL (0.3-1.2); BLOOD UREA NITROGEN 17 MG/DL (9-23); CALCIUM LEVEL 9.9 MG/DL (8.3-10.6); CARBON DIOXIDE LEVEL 26 MMOL/L (20-31); CHLORIDE LEVEL 108 MMOL/L (98-107); CREATININE FOR GFR 0.91 MG/DL (0.70-1.30); GLOMERULAR FILTRATION RATE > 60.0 (>49); GLUCOSE, FASTING 99 MG/DL (74-106); POTASSIUM SERUM 4.4 MMOL/L (3.5-5.1); SODIUM LEVEL 140 MMOL/L (136-145); TOTAL PROTEIN 7.1 G/DL (5.7-8.2)
== END ==
LOC: M RAD 10:01
PROVIDERS: ATTEND Urology
DX: Z01.818 Encounter for other preprocedural examination (principal); Z51.89 Encounter for other specified aftercare; Z79.899 Other long term (current) drug therapy

== ENCOUNTER → 2024-09-28 | Outpatient (CLI) | payer MEDICARE, MEDICAID ==
[~2024-09-28] MED LIST changes: +ISOVUE-370 76% 100ML VIAL As Ordered ONE
== END ==
LOC: M RAD 13:04
PROVIDERS: ATTEND Physician Assistant
DX: N28.89 Other specified disorders of kidney and ureter (principal)
CPT/HCPCS: 74170; Q9967

== ENCOUNTER → 2024-10-15 | Outpatient (REF) | payer MEDICARE, MEDICAID ==
[~2024-10-15] MED LIST changes: +COLA100C5 PO; -ISOVUE-370 76% 100ML VIAL As Ordered ONE; +PANT40TA29 PO; +PERCOCET PO
== END ==
LOC: M LAB REF 19:18
PROVIDERS: ATTEND Family Medicine Addiction Medicine
DX: N28.89 Other specified disorders of kidney and ureter (principal)

== ENCOUNTER 2024-10-20 06:02 | Day surgery (SDC) | payer MEDICARE, MEDICAID ==
[~2024-10-20] VITALS: Ht 180.3 cm; Wt 97.5 kg
[2024-10-20] VITALS (8 sets, daily range): BP systolic 132–151; BP diastolic 82–90; TEMP 97.5–98.2; O2SAT 94–95
[~2024-10-20 06:02] MED LIST changes: -COLA100C5 PO; -PERCOCET PO
[2024-10-20] MEDS ORDERED: MIDAZOLAM INJ 2MG/2ML VIAL As Ordered ONE (07:13)
[2024-10-20] MEDS ORDERED: LIDOCAINE 2% 100MG/5ML SDV (FOR ANES.) As Ordered ONE (07:13)
[2024-10-20] MEDS ORDERED: ONDANSETRON 4MG 2ML VIAL As Ordered ONE (07:13)
[2024-10-20] MEDS ORDERED: ROCURONIUM BROMIDE 50MG/5ML VIAL As Ordered ONE (07:13)
[2024-10-20] MEDS ORDERED: fentaNYL 100 MCG/2 ML INJECTION As Ordered ONE (07:13)
[2024-10-20] MEDS ORDERED: propofoL 200 MG/20 ML VIAL As Ordered ONE (07:13)
[2024-10-20] MEDS ORDERED: KETOROLAC 60MG 2ML VIAL As Ordered ONE (07:14)
[2024-10-20] MEDS ORDERED: SUGAMMADEX SODIUM 500 MG/5 ML VIAL (BRIDION) As Ordered ONE (07:14)
[2024-10-20] MEDS ORDERED: ACETAMINOPHEN 325 MG TAB PO PRN (07:30)
[2024-10-20] MEDS ORDERED: PERCOCET 5MG/325MG TAB PO PRN ×2 (07:30)
[2024-10-20] MEDS: ceFAZolin SOD 2 GM in IV 1 EA IV ONE (07:34)
[2024-10-20] MEDS ORDERED: LIDOCAINE 5% OINT 30GM TUBE As Ordered ONE (07:53)
[2024-10-20] MEDS ORDERED: ACETAMINOPHEN 1000MG/100ML IV BAG As Ordered ONE (07:58)
[2024-10-20] MEDS ORDERED: METOPROLOL 5 MG/5 ML VIAL As Ordered ONE (08:00)
[2024-10-20] MEDS ORDERED: HYDROmorphone HCL 2MG/ML 1ML VIAL As Ordered ONE (08:14)
[2024-10-20] MEDS: ceFAZolin 2 GM/D5W 50 ML IV BAG As Ordered ONE (11:15)
[2024-10-20] MEDS ORDERED: oxyCODONE 5MG TAB PO PRN (12:10)
[2024-10-20] MEDS ORDERED: ONDANSETRON 4MG 2ML VIAL IV PRN (12:10)
[2024-10-20] MEDS ORDERED: HYDROMORPHONE HCL 0.5 MG/ 0.5 ML SYRINGE IV PRN (12:10)
[2024-10-20] MEDS ORDERED: fentaNYL 100 MCG/2 ML INJECTION IV PRN (12:10)
[2024-10-20] MEDS: LIDOCAINE 1% SDV 30ML VIAL As Ordered ONE (12:18)
[2024-10-20 13:04] LABS: HEMATOCRIT 45.4 % (42.0-52.0); HEMOGLOBIN 15.1 g/dl (13.5-17.5); MEAN CORPUSCULAR HEMOGLOBIN 29.4 pg (27.0-33.0); MEAN CORPUSCULAR HGB CONC 33.3 g/dl (32.0-36.5); MEAN CORPUSCULAR VOLUME 88.5 fl (80.0-96.0); PLATELET COUNT, AUTOMATED 262 10^3/uL (150-450); RED BLOOD COUNT 5.13 10^6/uL (4.30-6.10)
[2024-10-20 13:39] LABS: BLOOD UREA NITROGEN 19 MG/DL (9-23); CALCIUM LEVEL 8.7 MG/DL (8.3-10.6); CARBON DIOXIDE LEVEL 24 MMOL/L (20-31); CHLORIDE LEVEL 109 MMOL/L (98-107); CREATININE FOR GFR 1.28 MG/DL (0.70-1.30); GLOMERULAR FILTRATION RATE > 60.0 (>49); GLUCOSE, FASTING 125 MG/DL (74-106); POTASSIUM SERUM 4.6 MMOL/L (3.5-5.1); SODIUM LEVEL 139 MMOL/L (136-145)
[2024-10-20] MEDS: LR 1,000 ML IV SCH (14:13)
[2024-10-20] MEDS: ONDANSETRON 4MG 2ML VIAL IV PRN (15:01)
[2024-10-20] MEDS: NS 1,000 ML IV SCH (15:01)
[2024-10-20] MEDS: DOCUSATE SODIUM 100MG CAPSULE PO SCH (15:01)
[2024-10-20] MEDS: ceFAZolin SOD 1 GM in DEXTROSE 5% (D5W) ADV/MINI-BAG 50 ML IV SCH (15:01)
[2024-10-20] MEDS ORDERED: HOME MED LIST COMPLETE! XX SCH (16:15)
[2024-10-20] MEDS ORDERED: dexmedeTOMIDine (4MCG/ML)200MCG/50ML BTL (PRECEDEX) As Ordered ONE (17:40)
[2024-10-20] MEDS ORDERED: PERCOCET PO (19:19)
[2024-10-20] MEDS ORDERED: COLA100C5 PO (19:19)
[2024-10-21 02:30] VITALS: O2SAT 95
[2024-10-21 04:00] VITALS: BP 135/81; TEMP 98.8; O2SAT 94
[2024-10-21 06:43] LABS: HEMATOCRIT 39.7 % (42.0-52.0); HEMOGLOBIN 13.6 g/dl (13.5-17.5); MEAN CORPUSCULAR HEMOGLOBIN 29.4 pg (27.0-33.0); MEAN CORPUSCULAR HGB CONC 34.3 g/dl (32.0-36.5); MEAN CORPUSCULAR VOLUME 85.9 fl (80.0-96.0); PLATELET COUNT, AUTOMATED 259 10^3/uL (150-450); RED BLOOD COUNT 4.62 10^6/uL (4.30-6.10); WHITE BLOOD COUNT 12.2 10^3/uL (4.0-10.0)
[2024-10-21 07:06] LABS: CALCIUM LEVEL 8.4 MG/DL (8.3-10.6); CREATININE FOR GFR 1.64 MG/DL (0.70-1.30); GLOMERULAR FILTRATION RATE 45.8 (>49); POTASSIUM SERUM 4.3 MMOL/L (3.5-5.1)
[2024-10-21 08:00] VITALS: BP 138/81; TEMP 99.1; O2SAT 95
[2024-10-21] MEDS: PANTOPRAZOLE 40MG TAB (PROTONIX) PO SCH (08:18)
[2024-10-21 08:20] VITALS: O2SAT 93
[2024-10-21 12:00] VITALS: BP 124/85; TEMP 98.6; O2SAT 93
== END 2024-10-21 13:25 | disposition home or self-care (01) ==
LOC: M SDC 06:02 → M MSPAV 13:45 → M SDC 10-21 13:25
PROVIDERS: ATTEND Urology
DX: C64.1 Malignant neoplasm of right kidney, except renal pelvis (principal); N21.0 Calculus in bladder; R26.81 Unsteadiness on feet; Z99.89 Dependence on other enabling machines and devices; Z79.899 Other long term (current) drug therapy
CPT/HCPCS: 36415; 50545; 80048; 85027; 86850; 86900; 86901; 88307; J0131; J0665; J0690; J1100; J1171; J1885; J2250; J2405; J3010; S2900

== ENCOUNTER → 2024-11-06 | Outpatient (CLI) | payer MEDICARE, MEDICAID ==
[~2024-11-06] MED LIST changes: +CIPR-249 PO; +COLA100C5 PO; +PERCOCET PO
[2024-11-06 11:25] LABS: HEMATOCRIT 44.2 % (42.0-52.0); MEAN CORPUSCULAR HEMOGLOBIN 29.9 pg (27.0-33.0); MEAN CORPUSCULAR HGB CONC 33.9 g/dl (32.0-36.5); PLATELET COUNT, AUTOMATED 387 10^3/uL (150-450); RED BLOOD COUNT 5.02 10^6/uL (4.30-6.10); WHITE BLOOD COUNT 7.3 10^3/uL (4.0-10.0)
[2024-11-06 12:06] LABS: CALCIUM LEVEL 9.9 MG/DL (8.3-10.6); CREATININE FOR GFR 1.48 MG/DL (0.70-1.30); GLOMERULAR FILTRATION RATE 51.6 (>49); POTASSIUM SERUM 4.4 MMOL/L (3.5-5.1)
== END ==
LOC: M LAB 10:13
PROVIDERS: ATTEND Urology
DX: Z01.818 Encounter for other preprocedural examination (principal); C64.1 Malignant neoplasm of right kidney, except renal pelvis; N21.0 Calculus in bladder; N39.0 Urinary tract infection, site not specified

== ENCOUNTER 2024-11-12 06:34 | Day surgery (SDC) | payer MEDICARE, MEDICAID ==
[~2024-11-12] VITALS: Ht 180.3 cm; Wt 97.1 kg
[~2024-11-12 06:34] MED LIST changes: -CIPR-249 PO
[2024-11-12] MEDS ORDERED: ACETAMINOPHEN 1000MG/100ML IV BAG As Ordered ONE (08:45)
[2024-11-12] MEDS ORDERED: LIDOCAINE 2% 100MG/5ML SDV (FOR ANES.) As Ordered ONE (08:53)
[2024-11-12] MEDS ORDERED: ONDANSETRON 4MG 2ML VIAL As Ordered ONE (08:53)
[2024-11-12] MEDS ORDERED: fentaNYL 100 MCG/2 ML INJECTION As Ordered ONE (08:54)
[2024-11-12] MEDS ORDERED: MIDAZOLAM INJ 2MG/2ML VIAL As Ordered ONE (08:55)
[2024-11-12] MEDS: ceFAZolin SOD 2 GM in IV 1 EA IV ONE (09:10)
[2024-11-12] MEDS ORDERED: PHENYLephrine 500MCG 5ML (100MCG/ML) SYRINGE As Ordered ONE (09:24)
[2024-11-12] MEDS ORDERED: ePHEDrine SULFATE 25 MG/5 ML(5MG/ML) SYRINGE As Ordered ONE (09:24)
[2024-11-12] MEDS ORDERED: oxyCODONE 5MG TAB PO PRN (10:50)
[2024-11-12] MEDS ORDERED: MORPHINE 2 MG/ML 1ML VIAL IV PRN (10:50)
[2024-11-12] MEDS ORDERED: fentaNYL 100 MCG/2 ML INJECTION IV PRN (10:50)
[2024-11-12] MEDS ORDERED: ONDANSETRON 4MG 2ML VIAL IV PRN (10:50)
[2024-11-12] MEDS ORDERED: SUCCINYLCHOLINE 100MG/5ML SYRINGE As Ordered ONE (10:57)
[2024-11-12] MEDS ORDERED: ESMOLOL INJ 100MG/10ML VIAL As Ordered ONE (11:10)
[2024-11-12] MEDS: ESMOLOL INJ 100MG/10ML VIAL IV PRN (11:12)
[2024-11-12] MEDS ORDERED: **NOTE PATIENT COMMENT** MISC XX SCH (11:15)
[2024-11-12] MEDS ORDERED: CIPR-249 PO (11:32)
[2024-11-12] MEDS ORDERED: ACETAMINOPHEN 325 MG TAB PO PRN (12:00)
[2024-11-12 13:25] VITALS: BP 119/75; TEMP 97.1; O2SAT 94
== END 2024-11-12 13:43 | disposition home or self-care (01) ==
LOC: M SDC 06:34
PROVIDERS: ATTEND Urology
DX: N21.0 Calculus in bladder (principal); Z90.5 Acquired absence of kidney
CPT/HCPCS: 52318; 82365; J0131; J0330; J0690; J1100; J2250; J2371; J2405; J3010

== ENCOUNTER → 2025-03-12 | Outpatient (REF) | payer MEDICARE, MEDICAID ==
[~2025-03-12] MED LIST changes: +CIPR-249 PO
[2025-03-12 19:24] LABS: BILIRUBIN,TOTAL 0.5 MG/DL (0.3-1.2); CALCIUM LEVEL 9.7 MG/DL (8.3-10.6); CHOLESTEROL RISK RATIO 4.06 (<5); CREATININE FOR GFR 1.29 MG/DL (0.70-1.30); GLOMERULAR FILTRATION RATE 63.5 (>49); HDL CHOLESTEROL 38.9 MG/DL (>40); LDL CHOLESTEROL 87.5 MG/DL (<100); NON-HDL-C 119.1 MG/DL; POTASSIUM SERUM 4.4 MMOL/L (3.5-5.1); TOTAL PROTEIN 7.7 G/DL (5.7-8.2)
[2025-03-12 19:26] LABS: THYROID STIMULATING HORMONE 1.102 uIU/ML (0.55-4.78)
== END ==
LOC: M LAB REF 16:45
PROVIDERS: ATTEND Family Medicine Addiction Medicine
DX: I10 Essential (primary) hypertension (principal)

== ENCOUNTER → 2025-08-30 | Outpatient (REF) | payer MEDICARE, MEDICAID ==
[2025-08-30 13:47] LABS: ALT/SGPT 46.0 U/L (7.0-40); AST/SGOT 21.0 U/L (<34); CALCIUM LEVEL 9.5 MG/DL (8.3-10.6); CARBON DIOXIDE LEVEL 27.0 MMOL/L (20-31); CHLORIDE LEVEL 102.0 MMOL/L (98-107); CHOLESTEROL LEVEL 184.0 MG/DL (<200); CHOLESTEROL RISK RATIO 4.36 (<5); CREATININE FOR GFR 1.25 MG/DL (0.70-1.30); GLOMERULAR FILTRATION RATE 65.5 (>49); LDL CHOLESTEROL 117.6 MG/DL (<100); NON-HDL-C 141.8 MG/DL; POTASSIUM SERUM 4.7 MMOL/L (3.5-5.1); SODIUM LEVEL 135.0 MMOL/L (136-145); TRIGLYCERIDES LEVEL 121.0 MG/DL (<150)
== END ==
LOC: M LAB REF 11:52
PROVIDERS: ATTEND Family Medicine Addiction Medicine
DX: I10 Essential (primary) hypertension (principal)

== ENCOUNTER → 2025-11-18 | Outpatient (REF) | payer MEDICARE, MEDICAID ==
[2025-11-18 13:14] LABS: ALT/SGPT 25.0 U/L (7.0-40); AST/SGOT 15.0 U/L (<34); CALCIUM LEVEL 9.6 MG/DL (8.3-10.6); CARBON DIOXIDE LEVEL 28.0 MMOL/L (20-31); CHLORIDE LEVEL 103.0 MMOL/L (98-107); CHOLESTEROL LEVEL 166.0 MG/DL (<200); CHOLESTEROL RISK RATIO 4.2 (<5); CREATININE FOR GFR 1.42 MG/DL (0.70-1.30); GLOMERULAR FILTRATION RATE 56.2 (>49); LDL CHOLESTEROL 99.5 MG/DL (<100); NON-HDL-C 126.5 MG/DL; POTASSIUM SERUM 5.1 MMOL/L (3.5-5.1); SODIUM LEVEL 139.0 MMOL/L (136-145); TRIGLYCERIDES LEVEL 135.0 MG/DL (<150)
== END ==
LOC: M LAB REF 12:22
PROVIDERS: ATTEND Family Medicine Addiction Medicine
DX: I10 Essential (primary) hypertension (principal)